=== PATIENT | male | born 1945 | race Caucasian/White ===

== ENCOUNTER 2022-02-25 09:06 | Outpatient (RCR) | payer MEDICARE, MEDICAID | END 2022-03-20 | disposition home or self-care (01) | LOC: EDBD → ONC 09:06 | PROVIDERS: ATTEND Radiology Radiation Oncology | DX: D34 Benign neoplasm of thyroid gland (principal); E05.90 Thyrotoxicosis, unspecified without thyrotoxic crisis or storm | CPT/HCPCS: 99205 ==